=== PATIENT | female | born 1975 | race Caucasian/White ===

== ENCOUNTER 2017-01-09 21:44 | Emergency (ER) | payer OTHER ==
[2017-01-09 21:51] VITALS: BP 142/89; PULSE 100; RESP 18; TEMP 98.4; O2SAT 96
--- NOTE | 2017-01-09 22:08 | C.PDOC ---
History Of Present Illness Patient is a 41 year old female who presents to the ER after she used a cue tip and believed the cotton got stuck in her left ear. Denies any ear pain, discharge or change in hearing. Time Seen by Provider: 01/09/17 21:57 Chief Complaint (Nursing): ENT Problem History Per: Patient History/Exam Limitations: None Onset/Duration Of Symptoms: Hrs Current Symptoms Are (Timing): Still Present Quality (Ear): Foreign Body (Possible cotton). denies: Discharge Anticoagulant/Antiplatlet Use?: Unknown Recent Aspirin Use: Unknown Past Medical History Reviewed: Historical Data, Nursing Documentation, Vital Signs Vital Signs: Last Vital Signs Temp 98.4 F 01/09/17 21:48 Pulse 100 H 01/09/17 21:48 Resp 18 01/09/17 21:48 BP 142/89 01/09/17 21:48 Pulse Ox 96 01/09/17 23:05 - Medical History PMH: Diabetes Surgical History: No Surg Hx Family History: States: Unknown Family Hx - Social History Hx Tobacco Use: No Hx Alcohol Use: No Hx Substance Use: No - Immunization History Hx Tetanus Toxoid Vaccination: No Hx Influenza Vaccination: No Hx Pneumococcal Vaccination: No Review Of Systems ENT: Positive for: Other (Possible mandeep in ear). Negative for: Ear Pain, Ear Discharge (Possible mandeep in ear, no change in hearing) Physical Exam - Physical Exam Appears: Well, Non-toxic Skin: Normal Color, Warm, Dry Head: Atraumatic, Normacephalic Ear(s): Bilateral: Normal (No foreign body detected) Oral Mucosa: Moist Neurological/Psych: Oriented x3, Normal Speech, Normal Cognition ED Course And Treatment O2 Sat by Pulse Oximetry: 96 (Room air) Pulse Ox Interpretation: Normal Progress Note: Upon inspection, no foreign body was found in patients ear canal , will discharge home and advised to follow up with ENT. Medical Decision Making Medical Decision Making: no fb seen in either ear canal. will d/c Disposition Counseled Patient/Family Regarding: Diagnosis, Need For Followup - Disposition Referrals: Maulik Brambila [Primary Care Provider] - Disposition: HOME/ ROUTINE Disposition Time: 22:09 Condition: GOOD Additional Instructions: NO q-tips in ears please. - Clinical Impression Clinical Impression: Irritation of left ear - Scribe Statement The provider has reviewed the documentation as recorded by the Scribe Colt Wills All medical record entries made by the Kristineibzee were at my direction and personally dictated by me. I have reviewed the chart and agree that the record accurately reflects my personal performance of the history, physical exam, medical decision making, and the department course for this patient. I have also personally directed, reviewed, and agree with the discharge instructions and disposition.
== END 2017-01-09 22:25 | disposition home or self-care (01) ==
LOC: SUPCPDRO 21:44 → C.ER 21:44
DX: H93.8X2 Other specified disorders of left ear (principal)

== ENCOUNTER 2017-03-29 20:40 | Emergency (ER) | payer OTHER ==
[2017-03-29] MEDS ORDERED: Aspirin 325 mg EC Tablets PO STA (21:13)
[2017-03-29 21:38] LABS: BASO # 0.1 K/uL (0.0-0.2); BASO % 0.5 % (0.0-2.0); EOS # 0.4 K/uL (0.0-0.7); EOS % 3.4 % (0.0-4.0); HEMATOCRIT 40.4 % (34.0-47.0); LYMPH # 3.4 K/uL (1.0-4.3); LYMPH % 31.4 % (20.0-40.0); MEAN CELL VOLUME 85.7 fL (81.0-99.0); MEAN CORPUSCULAR HEMOGLOBIN 29.9 pg (27.0-31.0); MEAN CORPUSCULAR HGB CONC 34.9 g/dL (33.0-37.0); MONO # 1.2 K/uL (0.0-0.8); MONO % 10.9 % (0.0-10.0); RED CELL DISTRIBUTION WIDTH 12.7 % (11.5-14.5)
[2017-03-29] MEDS ORDERED: Aspirin 325 mg EC Tablets PO ONE (21:39)
[2017-03-29 21:46] LABS: CHLORIDE 97 mmol/L (98-107); POTASSIUM 3.6 mmol/L (3.6-5.2); SODIUM 137 mmol/L (132-148)
[2017-03-29 21:48] LABS: BILIRUBIN,TOTAL 0.4 mg/dL (0.2-1.3); CARBON DIOXIDE 29 mmol/L (22-30); GFR AFRICAN-AMERICAN > 60
[2017-03-29 21:49] LABS: ALB/GLOB RATIO 1.3 (1.0-2.1); ALKALINE PHOSPHATASE 57 U/L (38-126); ALT/SGPT 47 U/L (9-52); AST/SGOT 20 U/L (14-36); BLOOD UREA NITROGEN 11 mg/dL (7-17); CALCIUM 9.2 mg/dl (8.6-10.4); GLUCOSE,RANDOM 101 mg/dL (65-105); TOTAL PROTEIN 7.2 g/dL (6.3-8.3)
[2017-03-29] MEDS ORDERED: Iodixanol 320 MG/ML 100 ML BOTTLE IV ONE (23:10)
[2017-03-29 23:39] VITALS: TEMP 98
[2017-03-29 23:43] VITALS: PULSE 88
--- NOTE | 2017-03-30 00:05 | CT ---
EXAM: CT Angiography Chest With Intravenous Contrast CLINICAL HISTORY: 41 years old, female; Pain; Chest pain; Type not specified; Additional info: Pleuritic chest pain. R/O pe. TECHNIQUE: Axial computed tomographic angiography images of the chest with intravenous contrast using pulmonary embolism protocol. All CT scans at this facility use one or more dose reduction techniques, viz.: automated exposure control; ma/kV adjustment per patient size (including targeted exams where dose is matched to indication; i.e. head); or iterative reconstruction technique. MIP reconstructed images were created and reviewed. Coronal and sagittal reformatted images were created and reviewed. CONTRAST: 100 mL of [id number] administered intravenously. COMPARISON: No relevant prior studies available. FINDINGS: Pulmonary arteries: No pulmonary embolism. Aorta: No thoracic aortic aneurysm. Lungs: No mass. No consolidation. Trace bilateral pleural effusions, with adjacent compressive atelectasis. Pleural spaces: As above. Heart: No cardiomegaly. No significant pericardial effusion. No evidence of right heart dysfunction. Bones: No acute fracture. Lymph nodes: No pathologically enlarged lymph nodes. IMPRESSION: Trace bilateral pleural effusions, with adjacent compressive atelectasis. No pulmonary embolism.
--- NOTE | 2017-03-30 00:17 | C.PDOC ---
Time Seen by Provider: 03/29/17 21:02 Chief Complaint (Nursing): Chest Pain History Per: Patient Onset/Duration Of Symptoms: Days (1), Intermittent Episodes Current Symptoms Are (Timing): Still Present Severity: Moderate Quality: Sharp Modifying Factors: Other Indicated Below Exacerbating Factors: Deep Breathing Additional History Per: Prior Records Past Medical History Reviewed: Historical Data, Nursing Documentation, Vital Signs Vital Signs: Last Vital Signs Temp 98.0 F 03/29/17 23:36 Pulse 98 H 03/29/17 23:36 Resp 20 03/29/17 23:36 BP 146/73 03/29/17 23:36 Pulse Ox 99 03/29/17 23:36 - Medical History PMH: Asthma (?), Diabetes (Gestational) Surgical History: Family History: States: Unknown Family Hx - Social History Hx Tobacco Use: No Hx Alcohol Use: No Hx Substance Use: No - Immunization History Hx Tetanus Toxoid Vaccination: No Hx Influenza Vaccination: No Hx Pneumococcal Vaccination: No Review Of Systems Except As Marked, All Systems Reviewed And Found Negative. Constitutional: Negative for: Fever Cardiovascular: Positive for: Chest Pain Respiratory: Positive for: Cough. Negative for: Hemoptysis Gastrointestinal: Negative for: Vomiting, Abdominal Pain Musculoskeletal: Negative for: Neck Pain, Back Pain, Leg Pain Skin: Negative for: Rash Neurological: Negative for: Weakness, Numbness, Seizures Physical Exam - Physical Exam Appears: Non-toxic, No Acute Distress Skin: Normal Color, Warm, Dry, No Rash Head: Atraumatic, Normacephalic Eye(s): bilateral: Normal Inspection, PERRL, EOMI Neck: Normal ROM, Supple Chest: Symmetrical, No Deformity, Tenderness (mild parasternal), No Ecchymosis, No Subcutaneous Emphysema Cardiovascular: Rhythm Regular Respiratory: Normal Breath Sounds, No Accessory Muscle Use Gastrointestinal/Abdominal: Soft, No Tenderness Back: No CVA Tenderness Extremity: Normal ROM, No Pedal Edema, No Calf Tenderness Neurological/Psych: Oriented x3, Normal Speech, Normal Motor, Normal Sensation ED Course And Treatment - Laboratory Results Result Diagrams: 03/29/17 21:35 03/29/17 21:35 Urine POC: Negative ECG: Interpreted By Me, Viewed By Me ECG Rhythm: Sinus Rhythm ECG Interpretation: No Acute Changes Rate From EC O2 Sat by Pulse Oximetry: 99 Pulse Ox Interpretation: Normal - CT Scan/US CTA of chest Other Rad Studies (CT/US): Read By Radiologist, Radiology Report Reviewed CT/US Interpretation: IMPRESSION: Trace bilateral pleural effusions, with adjacent compressive atelectasis. No pulmonary embolism. Reassessment Condition: Improved Disposition Counseled Patient/Family Regarding: Studies Performed, Diagnosis, Need For Followup, Rx Given - Disposition Referrals: Maulik Brambila [Staff Provider] - Disposition: HOME/ ROUTINE Disposition Time: 00:18 Condition: STABLE Additional Instructions: Follow up with your doctor for further evaluation and treatment. Return to the ER if you develop fever, shortness of breath, worsening of symptoms or if you have any other concerns. Prescriptions: Albuterol HFA [Ventolin HFA 90 mcg/actuation (8 g)] 2 puff IH Q4 PRN #1 unit PRN Reason: Cough And Congestion Instructions: Chest Pain (ED) Forms: [employer] ([place]) - Clinical Impression Clinical Impression: Chest pain
[2017-03-30 01:20] VITALS: BP 136/78; RESP 24; O2SAT 97
--- NOTE | 2017-03-30 12:58 | RAD ---
PROCEDURE: CHEST RADIOGRAPH, 1 VIEW HISTORY: chest pain COMPARISON: March 29, 2017. CT pulmonary angiogram FINDINGS: LUNGS: Clear. PLEURA: No pneumothorax or pleural fluid seen. CARDIOVASCULAR: Normal. OSSEOUS STRUCTURES: No significant abnormalities. VISUALIZED UPPER ABDOMEN: Normal. OTHER FINDINGS: None. IMPRESSION: No active disease.
--- NOTE | 2017-04-08 20:08 | CARD ---
APPROVED REPORT EKG Measurement Heart [id number] <Conclusion> Normal sinus rhythm Normal ECG
== END 2017-03-30 00:30 | disposition home or self-care (01) ==
LOC: C.ER 20:40
DX: R07.9 Chest pain, unspecified (principal)
CPT/HCPCS: 71010; 71275; 80053; 80324; 80345; 80346; 80349; 80353; 80358; 80361; 83992; 84484; 84703; 85025; 85378; 85610; 85730; 99285; Q9967